=== PATIENT | male | born 1955 | race Caucasian/White ===

== ENCOUNTER 2018-05-24 16:20 | Emergency (ER) | payer MEDICARE, MEDICAID ==
[~2018-05-24] VITALS: Ht 180.3 cm; Wt 105.5 kg
[~2018-05-24 16:20] MED LIST: AMLO10TA2 PO; ASPI-1071 PO; BACL10TA PO; BUS15T PO; CHOL100046 PO; EZET10TA14 PO; FURO-150 PO; HYDR-3973 PO; LEVO75TA PO; LORA0.5T PO; NICO-687 TD; OMEP20TA5 PO; PERP8TAB6 PO; TRAZ-219 PO; VALS40TA2 PO; VENL-190 PO
[2018-05-24] MEDS ORDERED: ipratropium/albuterol 3ml nebule NEB ONE (16:55)
[2018-05-24] MEDS ORDERED: methylPREDNISolone sod succ 125mg/2ml vial IV ONE (16:55)
[2018-05-24] MEDS ORDERED: normal saline 1000ML IV soln IV ONE (16:55)
[2018-05-24 17:25] LABS: BASOPHILS % (AUTO) 0.8 % (0-1); EOSINOPHILS % (AUTO) 0.8 % (0-6); HEMATOCRIT 45.3 % (42.0-52.0); HEMOGLOBIN 15.2 g/dl (14.0-17.9); LYMPHOCYTES # (AUTO) 0.7 X10'3 (1.1-4.8); LYMPHOCYTES % (AUTO) 13.9 % (21-51); MEAN CORPUSCULAR HEMOGLOBIN 32.7 PG (27.0-31.0); MEAN CORPUSCULAR HGB CONC 33.7 % (33.0-36.5); MEAN CORPUSCULAR VOLUME 97.2 FL (78-98); MEAN PLATELET VOLUME 8.7 FL (7.4-10.4); MONOCYTES # (AUTO) 0.5 X10'3 (0-0.9); MONOCYTES % (AUTO) 9.7 % (2-12); NEUTROPHILS # (AUTO) 3.5 X10'3 (1.8-7.7); NEUTROPHILS % (AUTO) 74.8 % (42-75); PLATELET COUNT 109 X10'3 (140-440); RED BLOOD COUNT 4.66 X10'6 (4.70-6.10); RED CELL DISTRIBUTION WIDTH 12.6 % (11.5-14.5); WHITE BLOOD COUNT 4.7 X10'3 (4.5-11.0)
[2018-05-24 17:31] LABS: CLARITY,URINE CLEAR (Clear); COLOR,URINE STRAW (Yellow); GLUCOSE, URINE NEGATIVE (Neg); KETONES,URINE NEGATIVE (Neg); LEUKOCYTE ESTERASE ,URINE NEGATIVE (Neg); NITRITES, URINE NEGATIVE (Neg); OCCULT BLOOD,URINE NEGATIVE (Neg); PROTEIN,URINE NEGATIVE (Neg); UA COLLECTION TYPE CLN CATCH MIDSTREAM; UROBILINOGEN,URINE 0.2 E.U/dL (0.2-1.0)
[2018-05-24 17:41] LABS: ANION GAP 14 (8-16); BLOOD UREA NITROGEN 9 MG/DL (7-18); CHLORIDE 93 MMOL/L (99-107); GLUCOSE 99 MG/DL (70-104); POTASSIUM 3.4 MMOL/L (3.5-5.1); SODIUM 131 MMOL/L (135-145); TOTAL CARBON DIOXIDE 23.6 MMOL/L (24-32)
[2018-05-24 17:42] LABS: ALANINE AMINOTRANSFERASE 24 U/L (12-78); ALBUMIN 3.7 G/DL (3.4-5.0); ALKALINE PHOSPHATASE 61 IU/L (46-116); ASPARTATE AMINO TRANSFERASE 22 U/L (10-37); BILIRUBIN,TOTAL 0.5 MG/DL (0.1-1.0); BUN/CREATININE RATIO 7.1 (5.4-32.0); CALCIUM 8.3 MG/DL (8.5-10.1); CREATININE 1.26 MG/DL (0.60-1.10); ETHANOL 0.119 GM/DL (0.0-0.010); TOTAL PROTEIN 7.4 G/DL (6.4-8.2); eGFR 58 ML/MIN
[2018-05-24] MEDS ORDERED: FLUT16SP2 BOTHNARES (19:15)
[2018-05-24] MEDS ORDERED: PSEU-259 PO (19:15)
[2018-05-24] MEDS ORDERED: AZIT250T2 PO (19:15)
[2018-05-24] MEDS ORDERED: PRED20TA PO (19:15)
[2018-05-24 19:27] VITALS: BP 132/77
== END 2018-05-24 19:31 | disposition home or self-care (01) ==
LOC: ER 16:21 → MERGE 16:21 → ER 19:31
DX: J32.9 Chronic sinusitis, unspecified (principal); F10.129 Alcohol abuse with intoxication, unspecified; F17.200 Nicotine dependence, unspecified, uncomplicated; Z98.890 Other specified postprocedural states; Z88.0 Allergy status to penicillin; Z79.899 Other long term (current) drug therapy; Y90.9 Presence of alcohol in blood, level not specified
CPT/HCPCS: 36415; 80053; 80320; 81003; 82948; 83605; 84145; 85025; 87040; 87502; 87503; 93005; 94640; 94760; 96374; 99284; J2930; J7030

== ENCOUNTER 2019-05-30 22:12 | Emergency (ER) | payer MEDICARE, MEDICAID ==
[~2019-05-30] VITALS: Ht 180.3 cm; Wt 100.9 kg
[~2019-05-30 22:12] MED LIST changes: -EZET10TA14 PO; +EZET10TA21 PO; +FLUT16SP2 BOTHNARES; +PSEU-259 PO; -TRAZ-219 PO; +TRAZ-256 PO
[2019-05-30 23:06] LABS: BASOPHILS % (AUTO) 0.6 % (0-1); EOSINOPHILS # (AUTO) 0.1 X10'3 (0-0.9); EOSINOPHILS % (AUTO) 1.8 % (0-6); HEMATOCRIT 40.3 % (42.0-52.0); HEMOGLOBIN 14.2 g/dl (14.0-17.9); LYMPHOCYTES # (AUTO) 1.9 X10'3 (1.1-4.8); LYMPHOCYTES % (AUTO) 34.7 % (21-51); MEAN CORPUSCULAR HEMOGLOBIN 33.9 PG (27.0-31.0); MEAN CORPUSCULAR HGB CONC 35.2 g/dL (33.0-36.5); MEAN CORPUSCULAR VOLUME 96.3 FL (78-98); MEAN PLATELET VOLUME 9.2 FL (7.4-10.4); MONOCYTES # (AUTO) 0.6 X10'3 (0-0.9); NEUTROPHILS # (AUTO) 2.8 X10'3 (1.8-7.7); NEUTROPHILS % (AUTO) 51.9 % (42-75); PLATELET COUNT 97 X10'3 (140-440); RED BLOOD COUNT 4.19 X10'6 (4.70-6.10); WHITE BLOOD COUNT 5.5 X10'3 (4.5-11.0)
[2019-05-30 23:11] LABS: PARTIAL THROMBOPLASTIN TIME 29 SECONDS (22-32)
[2019-05-30 23:21] LABS: ALANINE AMINOTRANSFERASE 22 U/L (12-78); ALBUMIN/GLOBULIN RATIO 0.9 (1.1-1.5); ALKALINE PHOSPHATASE 64 IU/L (46-116); ANION GAP 8 (8-16); ASPARTATE AMINO TRANSFERASE 27 U/L (10-37); BILIRUBIN,TOTAL 0.2 MG/DL (0.1-1.0); BLOOD UREA NITROGEN 9 MG/DL (7-18); CALCIUM 8.3 MG/DL (8.5-10.1); CHLORIDE 101 MMOL/L (99-107); CREATININE 1.13 MG/DL (0.60-1.10); ETHANOL 0.167 GM/DL (0.0-0.010); GLUCOSE 108 MG/DL (70-104); SODIUM 136 MMOL/L (135-145); TOTAL CARBON DIOXIDE 27.3 MMOL/L (24-32); TOTAL PROTEIN 6.3 G/DL (6.4-8.2); eGFR 66 ML/MIN
[2019-05-30] MEDS ORDERED: potassium Cl 20 mEq SR tablet PO STA (23:27)
[2019-05-30] MEDS ORDERED: ondansetron 4mg rapidly disintigrating tab PO ONE (23:30)
[2019-05-30] MEDS ORDERED: normal saline 1000ml 1,000 ML IV ONE (23:30)
[2019-05-30] MEDS ORDERED: BENZ-16 PO (23:32)
[2019-05-30 23:40] LABS: PLATELET ESTIMATE DECREASED
--- NOTE | 2019-05-31 00:24 | NUR ---
PT YELLING OUT FOR STAFF. HE STATES HE NEEDS TO URINATE. PT GIVEN A URINAL AND PROCEEDS TO SHOUT STEW AT ME AND STATES "YOU ARE ALL FUCKING SITTING ON YOUR ASS AND DOING NOTHING" - ADVISED PT THAT I HAD JUST WALKED PAST HIS ROOM AND HE WAS SLEEPING AND THAT HIS BEHAVIOR WILL NOT BE TOLERATED IN THIS DEPARTMENT. WHEN I STATED THAT HE WAS DRUNK AND SECURITY WOULD BE CALLED IF HIS BEHAVIOR CONTINUED HE BEGAN APPOLOGIZING.
[2019-05-31] MEDS ORDERED: BENZ-16 PO (00:39)
[2019-05-31 01:08] VITALS: BP 122/70
== END 2019-05-31 01:18 | disposition home or self-care (01) ==
LOC: ER 22:13
DX: F10.929 Alcohol use, unspecified with intoxication, unspecified (principal); R05 Cough; E87.6 Hypokalemia; E78.00 Pure hypercholesterolemia, unspecified; K21.9 Gastro-esophageal reflux disease without esophagitis; E03.9 Hypothyroidism, unspecified; G89.29 Other chronic pain; Z98.890 Other specified postprocedural states; Z88.0 Allergy status to penicillin; Z79.82 Long term (current) use of aspirin; Z79.899 Other long term (current) drug therapy; Y90.9 Presence of alcohol in blood, level not specified
CPT/HCPCS: 36415; 71045; 80053; 80320; 83605; 84145; 84484; 85025; 85610; 85730; 87040; 93005; 99284; J7030

== ENCOUNTER 2019-07-02 10:33 | Emergency (ER) | payer MEDICARE, MEDICAID ==
[~2019-07-02] VITALS: Ht 177.8 cm; Wt 97.5 kg
[~2019-07-02 10:33] MED LIST changes: -EZET10TA21 PO; +EZET10TA6 PO
[2019-07-02 11:37] LABS: BASOPHILS % (AUTO) 0.8 % (0-1); EOSINOPHILS # (AUTO) 0.2 X10'3 (0-0.9); EOSINOPHILS % (AUTO) 2.7 % (0-6); HEMATOCRIT 43.6 % (42.0-52.0); HEMOGLOBIN 15.1 g/dl (14.0-17.9); LYMPHOCYTES # (AUTO) 1.5 X10'3 (1.1-4.8); LYMPHOCYTES % (AUTO) 25.5 % (21-51); MEAN CORPUSCULAR HGB CONC 34.7 g/dL (33.0-36.5); MEAN PLATELET VOLUME 8.4 FL (7.4-10.4); MONOCYTES # (AUTO) 0.4 X10'3 (0-0.9); MONOCYTES % (AUTO) 7.6 % (2-12); NEUTROPHILS # (AUTO) 3.7 X10'3 (1.8-7.7); NEUTROPHILS % (AUTO) 63.4 % (42-75); PLATELET COUNT 131 X10'3 (140-440); RED BLOOD COUNT 4.44 X10'6 (4.70-6.10); RED CELL DISTRIBUTION WIDTH 13.2 % (11.5-14.5); WHITE BLOOD COUNT 5.8 X10'3 (4.5-11.0)
[2019-07-02 11:48] VITALS: BP 158/89
--- NOTE | 2019-07-02 11:48 | NUR ---
PT BROUGHT BACK TO ROOM FROM CT VIA W/C AND TECH. VSS
[2019-07-02 11:50] LABS: ALANINE AMINOTRANSFERASE 24 U/L (12-78); ALBUMIN 3.5 G/DL (3.4-5.0); ALKALINE PHOSPHATASE 60 IU/L (46-116); ANION GAP 5 (8-16); ASPARTATE AMINO TRANSFERASE 22 U/L (10-37); BILIRUBIN,TOTAL 0.3 MG/DL (0.1-1.0); BLOOD UREA NITROGEN 8 MG/DL (7-18); BUN/CREATININE RATIO 7.1 (5.4-32.0); CALCIUM 8.2 MG/DL (8.5-10.1); CHLORIDE 103 MMOL/L (99-107); CREATININE 1.13 MG/DL (0.60-1.10); ETHANOL < 0.010 GM/DL (0.0-0.010); GLUCOSE 92 MG/DL (70-104); POTASSIUM 4.3 MMOL/L (3.5-5.1); SODIUM 139 MMOL/L (135-145); TOTAL CARBON DIOXIDE 30.9 MMOL/L (24-32); TOTAL PROTEIN 6.9 G/DL (6.4-8.2); eGFR 66 ML/MIN
== END 2019-07-02 13:32 | disposition home or self-care (01) ==
LOC: ER 10:34
DX: S02.2XXA Fracture of nasal bones, initial encounter for closed fracture (principal); S05.32XA Ocular laceration without prolapse or loss of intraocular tissue, left eye, initial encounter; S20.212A Contusion of left front wall of thorax, initial encounter; R29.6 Repeated falls; E78.00 Pure hypercholesterolemia, unspecified; K21.9 Gastro-esophageal reflux disease without esophagitis; E03.9 Hypothyroidism, unspecified; G89.29 Other chronic pain; Z98.890 Other specified postprocedural states; Z88.0 Allergy status to penicillin; Z79.82 Long term (current) use of aspirin; Z79.899 Other long term (current) drug therapy; W01.198A Fall on same level from slipping, tripping and stumbling with subsequent striking against other object, initial encounter; Y93.89 Activity, other specified; Y92.89 Other specified places as the place of occurrence of the external cause; Y99.9 Unspecified external cause status
CPT/HCPCS: 36415; 70450; 70486; 71250; 72125; 80053; 80320; 85025; 99285

== ENCOUNTER 2021-07-10 11:21 | Emergency (ER) | payer MEDICARE, MEDICAID ==
[~2021-07-10] VITALS: Ht 180.3 cm; Wt 92.6 kg
[2021-07-10] MEDS ORDERED: HYDROcodone/acetaminophen 10/325mg tab PO ONE (12:45)
--- NOTE | 2021-07-10 13:08 | NUR ---
BACK FROM CT
[2021-07-10] MEDS ORDERED: HYDR-3972 PO (14:57)
[2021-07-10 15:06] VITALS: BP 140/88
== END 2021-07-10 15:07 | disposition home or self-care (01) ==
LOC: ER 11:22
DX: R07.81 Pleurodynia (principal); R55 Syncope and collapse; R07.89 Other chest pain; R42 Dizziness and giddiness; E78.00 Pure hypercholesterolemia, unspecified; K21.9 Gastro-esophageal reflux disease without esophagitis; E03.9 Hypothyroidism, unspecified; G89.29 Other chronic pain; Z72.89 Other problems related to lifestyle; Z98.890 Other specified postprocedural states; Z88.0 Allergy status to penicillin; Z79.82 Long term (current) use of aspirin; Z79.899 Other long term (current) drug therapy
CPT/HCPCS: 71101; 93005; 99283

== ENCOUNTER 2023-11-06 09:07 | Emergency (ER) | payer MEDICARE, MEDICAID ==
[~2023-11-06] VITALS: Ht 180.3 cm; Wt 86.4 kg
[~2023-11-06 09:07] MED LIST changes: +OMEP20TA43 PO; -OMEP20TA5 PO
[2023-11-06 09:09] VITALS: BP 108/63; PULSE 90; TEMP 98.2; O2SAT 95
[2023-11-06 10:13] VITALS: RESP 14
== END 2023-11-06 11:06 | disposition home or self-care (01) ==
LOC: ER 09:07
DX: S00.81XA Abrasion of other part of head, initial encounter (principal); S09.90XA Unspecified injury of head, initial encounter; E78.00 Pure hypercholesterolemia, unspecified; K21.9 Gastro-esophageal reflux disease without esophagitis; E03.9 Hypothyroidism, unspecified; G89.29 Other chronic pain; M54.9 Dorsalgia, unspecified; F17.210 Nicotine dependence, cigarettes, uncomplicated; R51.9 Headache, unspecified; F10.90 Alcohol use, unspecified, uncomplicated; Z98.890 Other specified postprocedural states; Z88.0 Allergy status to penicillin; Z79.899 Other long term (current) drug therapy; Z79.82 Long term (current) use of aspirin; Z79.51 Long term (current) use of inhaled steroids; W18.30XA Fall on same level, unspecified, initial encounter; Y93.89 Activity, other specified; Y92.89 Other specified places as the place of occurrence of the external cause; Y99.8 Other external cause status
CPT/HCPCS: 70450; 99284; A6258; J7030

== ENCOUNTER 2023-11-08 13:52 | Emergency (ER) | payer MEDICARE, MEDICAID ==
[~2023-11-08] VITALS: Ht 180.3 cm; Wt 88.2 kg
[2023-11-08 13:57] VITALS: BP 118/61; PULSE 89; TEMP 99; O2SAT 95
[2023-11-08 16:16] VITALS: RESP 16
[2023-11-08] MEDS: ketorolac tromethamine 15mg/ml inj. IM ONE (16:16)
== END 2023-11-08 16:19 | disposition home or self-care (01) ==
LOC: ER 13:53
DX: S80.11XA Contusion of right lower leg, initial encounter (principal); E78.00 Pure hypercholesterolemia, unspecified; K21.9 Gastro-esophageal reflux disease without esophagitis; E03.9 Hypothyroidism, unspecified; G89.29 Other chronic pain; M54.9 Dorsalgia, unspecified; F10.90 Alcohol use, unspecified, uncomplicated; Z98.890 Other specified postprocedural states; Z88.0 Allergy status to penicillin; Z79.899 Other long term (current) drug therapy; Z79.51 Long term (current) use of inhaled steroids; Z79.2 Long term (current) use of antibiotics; W18.39XA Other fall on same level, initial encounter; Y93.89 Activity, other specified; Y92.89 Other specified places as the place of occurrence of the external cause; Y99.8 Other external cause status
CPT/HCPCS: 73590; 96372; 99284; J1885